=== PATIENT | male | born 1945 | race Caucasian/White ===

== ENCOUNTER 2017-06-27 16:46 | Inpatient (IN) | payer MEDICARE, MEDICAID ==
[~2017-06-27] VITALS: Ht 165.1 cm; Wt 74.7 kg
[2017-06-27 18:00] VITALS: BP 114/59; PULSE 82; RESP 18; O2SAT 98
--- NOTE | 2017-06-27 18:00 | NUR ---
late note: Patient arrived to room in his street clothes; t-shirt, shorts held up with what appears to be an extension cord piece, and shoes without socks on. The patient is visibly dirty, smelling of urine, with matted hair down to the lower earlobes. Patient agreed to being cleaned with bed bath wipes and changed into a hospital gown and clean pull up in the event of further incontinence. Toe nails with caked on dirt requiring soaking with the wet cloth to clean. Private caregiver was present during cleaning and stated the patient hadn't been willing to bath in his tub and had only been incontinent since his visit to urgent care. RN aware of hygiene concerns. Addendum: 06/30/17 at 1425 by MARIA G CORTES CNA Amended: Links added.
--- NOTE | 2017-06-27 19:14 | NUR ---
admission pt arrived from . Caregivers present. Pt is severely [place], must speak loudly for him to understand. Does read some lips but mostly just caregiver. 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 able to read and answer yes or no questions easier. No PIV present. normally independent however pt found down on floor in home today, thought he laid down d/t back pain. Has been going on for awhile but pt normally refuses healthcare. Agreed to come today d/t pain. Admission completed with caregiver with pt's approval. Goldie will stay overnight with pt in his room.
[2017-06-27] MEDS ORDERED: Polyethylene Glycol (PEG) 17 Gm Powder PO PRN (19:25)
[2017-06-27] MEDS ORDERED: Ondansetron 2 mg/mL 2 mL Inj IVPUSH PRN (19:25)
[2017-06-27] MEDS ORDERED: Alum-Mag Hydrox-Simeth 30 mL Suspension PO PRN (19:25)
[2017-06-27 20:10] LABS: BASOPHILS % (AUTO) 0.1 % (0-3); EOSINOPHILS % (AUTO) 0.2 % (0-5); MONOCYTES % (AUTO) 11.7 % (4-12); Mean Corpuscular Hemoglobin 30.2 pg (27.0-35.0); NEUTROPHILS % (AUTO) 79.6 % (40-74); Platelet Count 146 bil/L (150-400)
[2017-06-27] MEDS: 0.9% Sodium Chloride 1,000 ML IV SCH (20:57)
--- NOTE | 2017-06-27 21:05 | DRSVH ---
PROCEDURE: US RENAL SONOGRAM INDICATIONS: low back pain, ARF TECHNIQUE: Real-time scanning was performed of the kidneys and bladder, with image documentation. COMPARISON: None. FINDINGS: Kidneys: Kidneys are normal in size. Right kidney measures 11.2 cm long; left kidney measures 11.3 and cm long. Right renal cortical thickness is 1.6 cm; left renal cortical thickness is 1.3 cm. Koko al cortical echotexture is normal. There is mild bilateral hydronephrosis but no visualized nephroli thiasis. No suspicious solid mass lesions. Bladder: The bladder is enlarged in volume, with the bladder dimensions measuring approximately 11.7 cm AP, 12.7 cm transverse and 10.9 cm craniocaudad. The patient is unable to void voluntarily. The re is hypoechoic debris layering posteriorly within the bladder lumen, but no bladder calculus is fou nd. The prostate appears moderately enlarged. Miscellaneous: No free pelvic fluid. IMPRESSION: Bladder distention, the patient was unable to void voluntarily. Posterior layering debri s is present within the bladder lumen, and the adjacent prostate is moderately enlarged. No bladder calculus is found. Mild hydronephrosis found at each kidney, without urinary tract stone within the collecting system of either kidney. Dictated by: Arun Esparza M.D. on 06/27/2017 at 20:59 Approved by: Arun Esparza M.D. on 06/27/2017 at 21:04
[2017-06-27 21:31] LABS: APPEARANCE,URINE HAZY (CLEAR,HAZY); COLOR,URINE DARK YELLOW (YELLOW); OCCULT BLOOD,URINE LARGE (NEGATIVE); UROBILINOGEN,URINE NORMAL (NORMAL)
[2017-06-27] MEDS ORDERED: Glucose 40% Oral Gel 15 Gm Tube PO PRN (22:15)
--- NOTE | 2017-06-27 22:15 | PCM.HPMED ---
Subjective Date of Service Jun 27, 2017 Primary Provider: Admitting Physician: Leroy Victoria MD Primary Care Physician: Darlin Pavon PA-C Attending Physician: Leroy Victoria MD Admit Status: Direct Admit, Full Admit, Remote Telemetry Chief Complaint: Back pain. . History of Present Illness: August Vegas is a 72-year-old male with a past medical history significant for cerebral palsy, diabetes mellitus type II, non-insulin using, and chronically elevated PSA who was a direct admit from the urgent care for acute renal failure. The patient is able to communicate very little mostly through hand written questions, therefore, the majority of his HPI was gathered from his caregivers. The patient's caregiver reports that he has had intermittent low back pain over the last 1-2 months. The patient has been complaining of worsening low back pain 2 days. The pain does not radiate. There has been no recent injury or trauma. The pain is aggravated by walking. Patient lives at his own home and has caregivers that come to his home twice daily Saturday through Saturday. The patient has been very resistant to regular care including follow-up with his PCP and addressing abnormal labs including a fairly significant elevation of his PSA since October 2016. Vital signs in the urgent care: Temperature 97.2. Pulse 82. Respiratory rate 20. Blood pressure 105/71. Pulse ox 97% on room air. PCP is Darlin Pavon PA-C. . Review of Systems: A comprehensive review of systems was conducted with the patient and found to be negative except as above in the History of Present Illness. . Allergies Coded Allergies: No Known Allergies (Verified Allergy, Unknown, 06/27/17) Home Medications Amlodipine 5 mg daily. Glipizide 10 mg twice a day. Lisinopril 10 mg twice a day. Lovastatin 10 mg daily at bedtime. Metformin 1000 mg twice a day. . PMH 1. Hypertension. 2. Hyperlipidemia. 3. Diabetes mellitus type II, non-insulin oozing. 4. Chronically elevated PSA. 5. Cerebral palsy. . Surgical History None. . Family History Unobtainable. . Social History Hx Alcohol Use: No Hx Substance Use: No Smoking Status: Former Smoker Living Arrangement: Alone (with caregivers daily ) Additional Information The patient has never been and has no children. 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 He uses a walker for ambulation. 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 He has caregivers that visit him twice a day Saturday through Saturday and once a day on Saturday and Saturday for medications. . Exam Vital Signs Vital signs in the urgent care: Temperature 97.2. Pulse 82. Respiratory rate 20. Blood pressure 105/71. Pulse ox 97% on room air. . Exam General: Elderly gentleman lying in bed and in no acute distress, well-developed , well-nourished, incomprehensible speech. HEENT: Normocephalic, atraumatic. External ears without defect. Pupils equal, round, and reactive to light. Anicteric sclerae, moist conjunctivae, and no lid lag. Oropharynx free of erythema and cobble stoning with moist mucosa. Neck: Supple with full range of motion. No jugular venous distension. No bruits. No lymphadenopathy or thyromegaly. Cardiovascular: Regular rate and rhythm without murmurs, rubs, or gallops appreciated Pulmonary: Clear to auscultation bilaterally in anterior lung arrington without crackles, wheezes, or rhonchi. Normal respiratory effort with no use of accessory muscles. GI: Soft, no appreciable tenderness to palpation, nondistended, bowel sounds present. No hepatosplenomegaly or masses appreciated. Extremities: No clubbing, cyanosis, or edema. Skin: Normal temperature, turgor, and texture; no rash, ulcers, or subcutaneous nodules appreciated. Neurological: Cranial nerves grossly intact. Normal muscle strength, tone, and bulk. Reflexes, coordination, and sensory function within normal limits. Known gait impairment and uses a F Nancy Nancy. Psychiatric: Developmentally delayed. Normal mood. Lymph: no cervical or supraclavicular lymphadenopathy . Lab and Diagnostics Labs Lab work performed in the urgent care CBC: WBC 16.7 Hemoglobin 14.1 Hematocrit 41.1 Platelets 162 Neutrophil 82% MCV 89 CMP: Sodium 137 Potassium 5.0 Chloride 97 Carbon dioxide 21 BUN 82 Creatinine 3.75 Glucose 205 Calcium 9.5 Bilirubin 1.4 AST 34 ALT 56 Albumin 3.8 Protein 6.9 . Microbiology Blood cultures 2 pending. Urine culture pending. . X-Rays, CTs and MRIs X-RAY LUMBAR SPINE, 2 OR 3 VIEW IMPRESSION: 1. Mild lumbar and lower thoracic spine disc degeneration, without compression fractures. 2. 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 If accurate numbering of lumbar spine levels is needed, recommend correlation with thoracic spine radiographs. Dictated by: Arturo Rosas M.D. on 06/27/2017 at 14:32 . Assessment & Plan August Vegas is a 72-year-old male with a past medical history significant for cerebral palsy, diabetes mellitus type II, non-insulin using, and chronically elevated PSA who was a direct admit from the urgent care for acute renal failure. 1. Acute kidney injury, present on admission. Active. - Likely secondary to obstructive uropathy and medications. - Patient's baseline creatinine 1.0 in 10/2016 (records reviewed). Initial creatinine 3.75. - Avoid nephrotoxins. - Ordered IV fluid hydration with NS at 100 mL/hr. - Ordered renal ultrasound, pending. - Ordered post void residual to assess for urinary retention. - Ordered urinalysis with culture if indicated, pending. We will hold off on starting antibiotics pending urinalysis. - Held lisinopril, metformin, and glipizide. 2. Acute leukocytosis, unclear etiology, present on admission. Active. - Patient presents with a leukocytosis of 16.7 of unclear significance. Likely multifactorial and secondary to obstructive uropathy from probable BPH versus neoplasm and likely UTI as patient has a long-standing history of significantly elevated PSA without intervention. - Ordered a urinalysis with culture if indicated, pending. - Ordered blood cultures 2, pending. - Ordered renal ultrasound, pending. - Day team to consider urology evaluation tomorrow morning. 3. Acute on chronic low back pain, present on admission. Active. - The patient has a history of chronic, significant elevation of PSA, 189 in 2015. - Likely due to VIKI secondary to obstructive uropathy from probable BPH versus neoplasm. 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 - Day team to consider MRI of lumbar spine if symptoms persist despite treatment. Chronic problems: 4. Hypertension, present on admission. Stable. - Continue amlodipine 5 mg daily. 5. Hyperlipidemia, present on admission. Stable. - Continue lovastatin 10 mg daily at bedtime. 6. Diabetes mellitus type II, non-insulin using, present on admission. Stable. - Hemoglobin A1c 6.4% in 10/2016. Repeat hemoglobin A1c pending. - Order low-dose correctional scale insulin. - Ordered heart healthy/carbohydrate consistent diet. - Held lisinopril, metformin, and glipizide. 7. Cerebral palsy, present on admission. Stable. 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 He has caregivers that he is able to communicate with easily and he communicates better through written text. PRN antiemetics: Zofran and Maalox. PRN bowel regimen: Senna and MiraLAX. PRN analgesics: Tylenol. Patient is admitted under inpatient status with expected length of stay greater than 2 midnights due to severity of presenting symptoms, risk of adverse event, and complexity of treatment plan. . VTE Prophylaxis: Sub-Q Heparin (Unfractionated) Resuscitation Status: DNR/DNI:Do Not Resuscitate/Intubate Attending Statement The patient was seen and examined together with house staff on 06/27/2017 and I agree with the history, exam and plan as outlined in the note above. Francia Torres DO Jun 27, 2017 19:39 Carmela Mae DO Jun 28, 2017 00:39
[2017-06-27] MEDS ORDERED: AMLO5TAB2 PO (22:18)
[2017-06-27] MEDS ORDERED: METF500T4 PO (22:18)
[2017-06-27] MEDS ORDERED: LOVA10TA PO (22:18)
[2017-06-27] MEDS ORDERED: GLIP5TAB21 PO (22:18)
[2017-06-27] MEDS ORDERED: LISI10TA PO (22:18)
[2017-06-27] MEDS: cefTRIAXone Inj 2,000 MG in Dextrose 5% Minibag Plus 50 ML IV SCH (23:01)
[2017-06-27 23:25] VITALS: PULSE 75
[2017-06-28] VITALS (9 sets, daily range): BP systolic 108–131; BP diastolic 64–88; PULSE 70–80; RESP 16–18; O2SAT 96–98
[2017-06-28] MEDS: Heparin 5,000 Unit/mL Inj SUBQ SCH ×4 (00:30→22:14)
--- NOTE | 2017-06-28 03:05 | NUR ---
Activity Patient alert and pleasant this evening. Díaz catheter placed, and is draining brown urine to gravity;UA sent. Peripheral IV placed in left forearm, and NS is currently infusing @ 100cc/hr with int abx. 2nd blood culture completed before starting abx. Telemetry applied. Evening BG 117. Patient denies any pain. Difficult to understand what patient is saying, but is able to say yes or no. Refused 0030 heparin; discussed with intensive care unit nurse that we will try again in the am. Patient is currently sleeping and appears comfortable. Will continue to monitor and continue Q1 hour checks.
[2017-06-28 05:22] LABS: BASOPHILS % (AUTO) 0.1 % (0-3); EOSINOPHILS % (AUTO) 1.8 % (0-5); MONOCYTES % (AUTO) 13.3 % (4-12); Mean Corpuscular Hemoglobin 30.7 pg (27.0-35.0); Mean Corpuscular Volume 89.4 fL (81-100); NEUTROPHILS % (AUTO) 71.1 % (40-74); Platelet Count 133 bil/L (150-400)
[2017-06-28] MEDS: 0.9% Sodium Chloride 1,000 ML IV SCH ×2 (06:12→16:25)
--- NOTE | 2017-06-28 06:13 | NUR ---
BG Am lab draw BG was 51. BG re-checked at 0600 and was 70. Patient is awake and alert. Is able to take orange juice, as well as some chocolate pudding. Addendum: 06/28/17 at 0627 by GURMEET ULLOA RN Correction: Am lab draw BG was 61 Night hospitalist notified of episode. Upon further reassessment BG is now 82. Patient is alert, talking to his caregiver and laughing. Care continues. Addendum: 06/28/17 at 0649 by GURMEET ULLOA RN Contacted resident and states that a hypoglycemic protocol does not need to be initiated at this point as long as his sugar is above 80. States to encourage him to drink more orange juice. Communicated with behavioral health care manager and showed her how to order breakfast for patient as well. Care continues.
[2017-06-28] MEDS: Insulin LISPRO 300 Unit/3 mL Inj SUBQ SCH ×4 (08:00→20:58)
--- NOTE | 2017-06-28 13:10 | NUR ---
CBG fluctuations Pt has had highly fluctuating cbg, this am was 158 after some oj given by noc shift r/t hypoglycemia, but hypoglycemia returned, lunch cbg was 70, so more oj given and closely monitoring cbg. Pt has been asymptomatic and otherwise content.
--- NOTE | 2017-06-28 16:25 | PCM.PNMED ---
Subjective Date of Service Jun 28, 2017 Subjective Patient is in bed, looks comfortable. Exam Vital Signs Vital Sign - Last Date Time Temp Pulse Resp B/P Pulse Ox O2 Delivery O2 Flow Rate FiO2 06/28/17 12:21 36.4 75 16 115/64 98 Room Air Intake and Output 06/27/17 06/27/17 06/28/17 Cumulative From/Thru 15:00 23:00 07:00 06/27/17 19:20 - 06/28/17 06:07 Intake Total 2180 ml 2180 ml Output Total 2900 ml 2900 ml Balance -720 ml -720 ml Intake Oral 1274 ml 1274 ml IV Total 906 ml 906 ml Output Urine Total 2900 ml 2900 ml # Bowel Movements 0 0 Exam PHYSICAL EXAM: GENERAL: Alert, not in distrese, patient is nonverbal, I doubt he understands what is going on around him. He does not follow verbal commands. HEAD: atraumatic, normocephalic, no bruises. EYES: JAKE, EOMI, anicteric, able to fully open and close eyelids SKIN: Skin color normal, turgor normal. No visible rashes or lesions. EAR, NOSE, MOUTH, THROAT: Lips, oral mucosa, tongue gums, oropharynx are moist , pink, no lesions. Ears normal appearance, no lesions. NECK: supple ROM normal. RESPIRATORY: Lungs clear to auscultation. Good diaphragmatic excursion. Normal percussion sound. CARDIAC: normal S1 and S2; no rubs, murmurs, or gallops; regular rate and rhythm ABDOMEN: Abdomen soft, non-tender. BS normal. No masses or organomegaly. MUSCULOSKELETAL: ROM full, muscles are not tender EXTREMITIES: no pitting edema in LE, no new deformities or skin discoloration. NEURO: Alert, oriented X 1, Sensation grossly intact., Cranial nerves II-XII intact PULSES: 2+ radial, 2+ carotid REVIEW OF SYSTEMS: GENERAL: no malaise, no fevers., SEE HPI HEENT: Negative for frequent or significant headaches All other reviewed and negative other than HPI. IVs and Medications Medications Reviewed: Medications were reviewed in detail Lab and Diagnostics Result Diagram: 06/28/17 0501 06/28/17 0501 Microbiology Blood cultures 2 pending. Urine culture pending. . X-Rays, CTs and MRIs X-RAY LUMBAR SPINE, 2 OR 3 VIEW IMPRESSION: 1. Mild lumbar and lower thoracic spine disc degeneration, without compression fractures. 2. 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 If accurate numbering of lumbar spine levels is needed, recommend correlation with thoracic spine radiographs. Dictated by: Arturo Rosas M.D. on 06/27/2017 at 14:32 US IMPRESSION: Bladder distention, the patient was unable to void voluntarily. Posterior layering debris is present within the bladder lumen, and the adjacent prostate is moderately enlarged. No bladder calculus is found. Mild hydronephrosis found at each kidney, without urinary tract stone within the collecting system of either kidney. . Assessment & Plan August Vegas is a 72-year-old male with a past medical history significant for cerebral palsy, diabetes mellitus type II, non-insulin using, and chronically elevated PSA who was a direct admit from the urgent care for acute renal failure. Acute kidney injury, UTI - Stable - Likely secondary to obstructive uropathy and medications. - Patient's baseline creatinine 1.0 in 10/2016 (records reviewed). Plan - Avoid nephrotoxins. - IV fluids - Hold lisinopril, metformin, and glipizide. Acute on chronic low back pain, present on admission. Active. - Improving - continue his current meds Hypertension - Blood pressure in the lower side - Hold blood pressure meds Hyperlipidemia - Stable - Continue lovastatin 10 mg daily at bedtime. Diabetes mellitus type II, non-insulin using, present on admission. Stable. - Stable - ISS, Accucheck. Cerebral palsy. 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 He has caregivers that he is able to communicate with easily and he communicates better through written text. PRN antiemetics: Zofran and Maalox. PRN bowel regimen: Senna and MiraLAX. PRN analgesics: Tylenol. DVT PROPHYLAXIS: Heparin Code status: DO NOT RESUSCITATE per patient wishes, caregiver confirmed Disposition: discharge in 1-3 days after patient improves. Labs, radiology tests, and ECG reviewed. VTE Prophylaxis: Sub-Q Heparin (Unfractionated) VTE Mechanical Devices: Intermittant Pneumatic CD Resuscitation Status: DNR/DNI:Do Not Resuscitate/Intubate Buck Hatch MD Jun 28, 2017 16:25 Given patient's current condition, I certify, in my opinion inpatient services greater than two midnights are medically necessary for this patient. Please see H&P and MD progress notes for additional information about patient's course of treatment. . VTE Prophylaxis: Sub-Q Heparin (Unfractionated) VTE Mechanical Devices: Intermittant Pneumatic CD Resuscitation Status: DNR/DNI:Do Not Resuscitate/Intubate Buck Hatch MD Jun 28, 2017 16:25
[2017-06-28] MEDS: cefTRIAXone Inj 2,000 MG in Dextrose 5% Minibag Plus 50 ML IV SCH (23:02)
[2017-06-29] VITALS (7 sets, daily range): BP systolic 112–136; BP diastolic 54–79; PULSE 64–75; RESP 16–20; O2SAT 93–98
[2017-06-29] MEDS: 0.9% Sodium Chloride 1,000 ML IV SCH ×2 (03:27→13:49)
--- NOTE | 2017-06-29 03:40 | NUR ---
ORANGE PICKER; reports; sinus rhythm 70.
--- NOTE | 2017-06-29 04:05 | NUR ---
GLU; pt refused h.s. blood sugar checks. Drinking juice off and on during the night.
[2017-06-29] MEDS: Insulin LISPRO 300 Unit/3 mL Inj SUBQ SCH ×4 (08:00→21:58)
[2017-06-29] MEDS: Heparin 5,000 Unit/mL Inj SUBQ SCH ×2 (08:31→17:37)
--- NOTE | 2017-06-29 10:45 | NUR ---
Sona KEMP notified that pt has intermittently refused heparin/bood sugar checks. requests that ingram be continued due to obstructive uropathy at this time. Will monitor.
--- NOTE | 2017-06-29 13:01 | PCM.PNMED ---
Subjective Date of Service Jun 29, 2017 Subjective Patient is in the bed. He is doing well, awake. Patient cannot follow verbal commands. Her last psychiatry to evaluate him. I do not think patient is able to make informed medical decisions. Also doubt he would be able to live alone anymore. Exam Vital Signs Vital Sign - Last Date Time Temp Pulse Resp B/P Pulse Ox O2 Delivery O2 Flow Rate FiO2 06/29/17 11:06 36.9 68 17 120/78 96 Room Air Intake and Output 06/28/17 06/28/17 06/29/17 Cumulative From/Thru 15:00 23:00 07:00 06/27/17 19:20 - 06/29/17 06:58 Intake Total 2114 ml 2410 ml 6704 ml Output Total 2100 ml 1750 ml 6750 ml Balance 14 ml 660 ml -46 ml Intake Oral 880 ml 1391 ml 3545 ml IV Total 1234 ml 1019 ml 3159 ml Output Urine Total 2100 ml 1750 ml 6750 ml # Bowel Movements 0 0 0 Exam GENERAL: Alert, not in distrese, patient is nonverbal. HEAD: atraumatic, normocephalic EYES: EOMI, anicteric, able to fully open and close eyelids SKIN: Skin color normal, turgor normal. No visible rashes EAR, NOSE, MOUTH, THROAT: Lips, oral mucosa, tongue are moist, pink, no lesions. NECK: supple ROM normal. RESPIRATORY: Lungs clear to auscultation. Good diaphragmatic excursion. CARDIAC: normal S1 and S2; no rubs, murmurs, or gallops; regular rhythm ABDOMEN: Abdomen soft, non-tender. BS normal. MUSCULOSKELETAL: ROM full, muscles are not tender EXTREMITIES: no pitting edema in LE, no new deformities or skin discoloration. NEURO: Alert, oriented X 1, Cranial nerves II-XII intact PULSES: 2+ radial, 2+ carotid REVIEW OF SYSTEMS: GENERAL: no malaise, no fevers., SEE HPI HEENT: Negative for frequent or significant headaches All other reviewed and negative other than HPI. IVs and Medications Medications Reviewed: Medications were reviewed in detail Lab and Diagnostics Result Diagram: 06/28/17 0501 06/28/17 0501 Microbiology Blood cultures 2 pending. Urine culture pending. . X-Rays, CTs and MRIs X-RAY LUMBAR SPINE, 2 OR 3 VIEW IMPRESSION: 1. Mild lumbar and lower thoracic spine disc degeneration, without compression fractures. 2. 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 If accurate numbering of lumbar spine levels is needed, recommend correlation with thoracic spine radiographs. Dictated by: Arturo Rosas M.D. on 06/27/2017 at 14:32 US IMPRESSION: Bladder distention, the patient was unable to void voluntarily. Posterior layering debris is present within the bladder lumen, and the adjacent prostate is moderately enlarged. No bladder calculus is found. Mild hydronephrosis found at each kidney, without urinary tract stone within the collecting system of either kidney. . Assessment & Plan August Vegas is a 72-year-old male with a past medical history significant for cerebral palsy, diabetes mellitus type II, and chronically elevated PSA who was a direct admit from the urgent care for acute renal failure, UTI. Acute kidney injury, UTI - Stable, BMP ordered. - Percocet on an elevated - Likely secondary to obstructive uropathy and medications. - Patient's baseline creatinine 1.0 in 10/2016 (records reviewed). Plan - Avoid nephrotoxins. - IV fluids - Hold lisinopril, metformin, and glipizide. - c/w Ceftriaxone Acute on chronic low back pain, present on admission. Active. - Improving - continue his current meds Hypertension - Blood pressure on the lower side - Hold blood pressure meds Hyperlipidemia - Stable - Continue lovastatin 10 mg daily at bedtime. Diabetes mellitus type II, non-insulin using, present on admission. Stable. - Stable - ISS, Accucheck. Cerebral palsy. 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 - He does have caregivers who stated that the patient is able to communicate and follow commands. When I asked the patient to open his mouth or to move his right arm or to do anything else simple enough to understand, patient did not follow any of these commands. He tried to do the same thing by writing it down for him and he was not able to processes these commands either. I think the patient is not able to communicate efficiently all make him for medical decisions. He will need power of [employer] would be able to make decisions for him. DVT PROPHYLAXIS: Heparin Code status: DO NOT RESUSCITATE per patient wishes, caregiver confirmed Disposition: discharge in 1-3 days after patient improves. Labs, radiology tests reviewed. VTE Prophylaxis: Sub-Q Heparin (Unfractionated) VTE Mechanical Devices: Intermittant Pneumatic CD Resuscitation Status: DNR/DNI:Do Not Resuscitate/Intubate Buck Hatch MD Jun 29, 2017 13:01
--- NOTE | 2017-06-29 17:18 | NUR ---
Activity Pt up OOB to recliner with 1PA for dinner. Tolerated well. [place] chair alarm on.
[2017-06-29] MEDS: cefTRIAXone Inj 2,000 MG in Dextrose 5% Minibag Plus 50 ML IV SCH (22:28)
[2017-06-30] MEDS: 0.9% Sodium Chloride 1,000 ML IV SCH ×2 (00:27→10:39)
[2017-06-30] MEDS: Heparin 5,000 Unit/mL Inj SUBQ SCH ×3 (00:27→17:23)
[2017-06-30 01:06] VITALS: BP 131/76; PULSE 69; RESP 18; O2SAT 94
[2017-06-30 05:09] VITALS: BP 132/78; PULSE 55; RESP 18; O2SAT 96
--- NOTE | 2017-06-30 05:43 | NUR ---
Communication Patient uses clipboard to communicate needs. Patient states that he is not having much pain. Patient up sitting in chair at beginning of shift. Up one person assist w/fww from chair to bed. Patient compliant with all cares throughout shift. Vitals stable care continues.
[2017-06-30] MEDS: Insulin LISPRO 300 Unit/3 mL Inj SUBQ SCH ×4 (07:25→21:14)
[2017-06-30 08:41] VITALS: BP 129/72; PULSE 72; RESP 19; O2SAT 96
[2017-06-30 14:05] VITALS: BP 119/83; PULSE 69; RESP 19; O2SAT 96
[2017-06-30] MEDS ORDERED: Promethazine 25 mg/mL Inj IM PRN (15:00)
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
[2017-06-30 20:36] VITALS: BP 131/78; PULSE 55; RESP 20; O2SAT 95
[2017-06-30] MEDS ORDERED: 0.9% Sodium Chloride 100 ML ONE (22:07)
[2017-06-30] MEDS: cefTRIAXone Inj 2,000 MG in Dextrose 5% Minibag Plus 50 ML IV SCH (22:10)
[2017-07-01] MEDS: Heparin 5,000 Unit/mL Inj SUBQ SCH ×3 (00:41→17:31)
--- NOTE | 2017-07-01 00:58 | NUR ---
Activity Pt pleasant and cooperative with care, difficult to understand most of what he is saying, but simple answers/phrases understandable. Pt received IV abx without issue. Originally was saying no d/t there already seeing there were IV tubing/bags hanging. They were taken down and new set hung, explained abx and tubings to pt. Then agreeable and brought his arm with the IV closer to this RN. Pt with good bed mobility - has not been OOB this shift. Currently sleeping. Care continues.
[2017-07-01 01:34] VITALS: BP 128/64; PULSE 58; RESP 18; O2SAT 96
[2017-07-01 05:39] VITALS: BP 121/75; PULSE 59; RESP 20; O2SAT 96
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
[2017-07-01 07:58] VITALS: BP 136/79; PULSE 63; RESP 20; O2SAT 96
[2017-07-01] MEDS: Insulin LISPRO 300 Unit/3 mL Inj SUBQ SCH ×4 (08:00→22:00)
[2017-07-01 12:30] VITALS: BP 129/78; PULSE 67; RESP 18; O2SAT 96
--- NOTE | 2017-07-01 15:14 | NUR ---
ERICA signed by pt's sister and IZA Chang by phone. Rosie Munoz MSW
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
--- NOTE | 2017-07-01 16:26 | NUR ---
Social Work- Continued D/C Planning Data: EMR reviewed. Pt is on day 4 of hospitalization for acute renal failure per H&P. Pt discussed in multidisciplinary rounds. Pt will require catheter for 2 weeks after discharge. Pt's sister is concerned with pt's caregivers attentiveness and level of care. BRINE PROCESS OPERATOR has made APS report. PT to evaluate pt to discern mobility as BRINE PROCESS OPERATOR has received conflicting reports from caregivers and family. T/C to pt's sister Celeste Chang regarding discharge planning. SW discussed pt's sister reporting to APS as she has first hand knowledge of pt's home situation. Phone contact information provided to pt's sister for APS reporting line. Pt's sister is agreeable to report. SW discussed goals for pt related to d/c planning. Pt's sister feels that he is not safe to return home as his home is a mess and they need time to clean it in addition to coordinating a different caregiving system. SW validated that and discussed potential respite options at SNF. Pt has never been to SNF before but pt's sister requests that he does not go to a SNF in [place] as she is worried he will try and walk home from the SNF. SW also discussed that because pt will require catheter care for two weeks after hospitalization that he may qualify for skilled RN at a SNF through [facility]. Pt's sister agreeable to this. No SNF order has been received at this time, SW to discuss with d/c planning needs and catheter care. T/C to pt's DDA CM Susan Lawrence regarding d/c planning and respite options for pt through SNF. Gwen states that pt's DDA plan does not cover respite through SNF but she does confirm that pt has [facility] and that if he has skilled RN/PT needs then he would be eligible to go to SNF. Gwen confirms that pt does not have any MH history but does have an intellectual disability. Susan Westfall and pt's sister Celeste are in contact regarding terminal clerk care planning and what pt needs as his disease progresses. Susan Westfall is also working with [employer] and a company called [employer] to have patient's house cleaned up. Pt's home is being evaluated by the [employer] on July 04 and then a bid will be placed and services will be coordinated through Susan Westfall. Susan Le requested clinicals, clinicals faxed. Assessment: Pt who is not capable of self-care at this time, may require SNF placement for RN needs due to ingram catheter at d/c. Plan: PT to see patient. SW to discuss with MD pt's skilled RN needs at d/c related to catheter care. SW will continue to follow. JUAN Fine
[2017-07-01 17:12] VITALS: BP 131/81; PULSE 67; RESP 20; O2SAT 99
[2017-07-01 20:00] VITALS: BP 122/68; PULSE 62; RESP 18; O2SAT 98
[2017-07-02] MEDS: Heparin 5,000 Unit/mL Inj SUBQ SCH ×3 (00:45→16:44)
--- NOTE | 2017-07-02 01:53 | NUR ---
Activity On initial assessment, patient is alert x1 and points to paper where he has written his name. No complaints of pain. Patient took PM meds without any trouble. VSS. Call light within reach. Care continues.
[2017-07-02 05:00] VITALS: BP 129/72; PULSE 66; RESP 18; O2SAT 96
[2017-07-02] MEDS: Insulin LISPRO 300 Unit/3 mL Inj SUBQ SCH ×3 (09:04→16:44)
--- NOTE | 2017-07-02 11:43 | NUR ---
Evaluation completed. Please go to "Notes" then click on "Assessments and Notes" (bottom left corner of screen). Then select appropriate discipline tab on top of screen.
--- NOTE | 2017-07-02 13:51 | NUR ---
SHELTER TRANSFER : Gave access and faxed facesheet to [facility] Lelia Ortiz per [employer]ORDIN[employer] and orders
--- NOTE | 2017-07-02 14:51 | PCM.DIMED ---
Discharge Instructions Date of Service Jul 02, 2017 Dates of Hospitalization Jun 27, 2017 at 18:05 Diet Discharge Diet: Diabetic Activity Discharge Activity: Other (as per physical therapy) Patient Instructions Follow-up plan Needs an outpatient urology consult appointment in 1-2 weeks Continue ingram catheter until seen by urologist Glucoscans daily - qod in the am and qod before dinner. If > 200 twice then resume Metformin Call PCP if SBP > 150 three times Follow-up with PCP in: 2 weeks Celi Herrmann MD Jul 02, 2017 14:51
[2017-07-02] MEDS ORDERED: METF500T4 PO (14:55)
[2017-07-02] MEDS ORDERED: CIPR-232 PO (14:55)
[2017-07-02] MEDS ORDERED: Acetaminophen PO (14:55)
[2017-07-02] MEDS ORDERED: TAMS0.4C98 PO (15:01)
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
--- NOTE | 2017-07-02 16:54 | NUR ---
Social Work: Discharge Data: EMR reviewed. Pt is on day 5 of hospitalization for acute renal failure. Pt discussed in multidisciplinary rounds, pt is medically ready to d/c today with his ingram catheter. PT has evaluated pt, recommending SNF level of care for continued gait training. SNF order is acknowledged. During last conversation, pt's DPOA requested that pt be discharged to a SNF in [facility]. Pt's DPOA aware from SNF CHOICE LIST that [facility] and [facility] are the only two facilities in [facility]. DPOA agreeable to both options. SW met with pt at bedside regarding d/c planning. Pt is very difficult to understand. HYDRAULIC LIFT DRIVER wrote statements on paper and pt attempted to write as well but his writing was illegible most times. Pt was able to communicate with thumbs up and thumbs down signals to HYDRAULIC LIFT DRIVER, relayed his order for dinner, as well as confirmed that he has caregivers at home. Pt was not able to elaborate or give any indication that he was refusing care at home or unhappy with his caregivers. If pt was indicating this, HYDRAULIC LIFT DRIVER was unable to interpret it accurately. When discussing d/c planning, pt provided thumbs up and was smiling when HYDRAULIC LIFT DRIVER spoke about going to a facility for physical therapy and nursing. Pt requested HYDRAULIC LIFT DRIVER return later this evening, which was able to be understood. Psych was consulted to evaluate for pt's capacity during this admission as pt has been reportedly declining his caregivers at home. Pt's sister feels that pt does not have the intellectual capacity to declined his caregivers. Pt has been compliant with all care here in the hospital during this admission. After much discussion with Psychiatrist, capacity evaluation during this admission is not appropriate as the information provided is all second hand. Pt has been completely agreeable to all care and participatory with discharge planning efforts. This brings to light the question of caregiver dynamics and attentiveness, which is separate from his capacity. Pt's sister could collect affidavits from pt's caregivers detailing his resistance to care and create a case to address his capacity before a court if she decides. This would be done after admission and pt's sister would be pursuing a dictaphone transcriber of her own accord. notified and agreeable to this, continuing with discharge. SAMPSON made referral to [facility]. T/T [facility] at [facility] regarding pt, [facility] is agreeable to accepting pt today. SW created packet and faxed orders. Facility arranged transport for 5:30. RN, ALEXIS notified. T/T pt's sister Celeste Chang regarding d/c planning. Pt's sister agreeable to d/c plan to [facility]. Celeste informed of affidavit process and guardianship process if she is interested, stated understanding. Pt's sister will continue to work with Susan Westfall regarding pt's resources and truck terminal manager care planning. T/T Susan Lawrence regarding pt's discharge. Susan Westfall appreciative of the update. T/T Malou Wolfe, [facility] PASRR coordinator for [facility], regarding pt's PASRR and d/c plan. Faxed clinicals and PASRR to [facility]. T/T Rachael Nguyen, pt's assigned APS fire and explosion investigator. and fax [phone]. Faxed clinicals and provided additional information by phone. Pt to d/c to [facility] at 5:30 via wheelchair van. RN, ALEXIS, pt/family, and [facility] all updated and agreeable to plan. No additional d/c planning needs. Assessment: Pt for whom SNF is medically necessary at this time. Plan: Pt to d/c to [facility] with [facility] to follow, transport at 5:30 via wheelchair van. All updated and agreeable to plan. No additional d/c planning needs identified. Rosie Munoz, HYDRAULIC LIFT DRIVER
[2017-07-02 17:02] VITALS: BP 123/80; PULSE 63; RESP 18; O2SAT 98
--- NOTE | 2017-07-02 17:31 | NUR ---
DC Pt leaves with transport to [facility]. Report given. Pt understands that he is going to skilled facility related to the ingram catheter and care for himself. Care discontinues
--- NOTE | 2017-07-02 17:31 | NUR ---
spiritual care: routine (late entry) caring visit. pt engaged in conversation, using clipboard and hand gestures. Difficult to understand, but he seemed to enjoy company and limited communication.
== END 2017-07-02 17:27 | DRG 683 ==
LOC: OSC 18:05
PROVIDERS: ADMIT Internal Medicine; ATTEND Internal Medicine
DX: N17.9 Acute kidney failure, unspecified (principal); N39.0 Urinary tract infection, site not specified; G80.9 Cerebral palsy, unspecified; N13.30 Unspecified hydronephrosis; E11.9 Type 2 diabetes mellitus without complications; I10 Essential (primary) hypertension; E78.5 Hyperlipidemia, unspecified; Z87.891 Personal history of nicotine dependence; B95.2 Enterococcus as the cause of diseases classified elsewhere